=== PATIENT | female | born 1960 | race Two or more races ===

== ENCOUNTER 2023-09-02 11:36 | Inpatient (IN) | payer OTHER ==
[~2023-09-02] VITALS: Ht 160 cm; Wt 76.0 kg
[2023-09-02] MEDS ORDERED: MORPHINE SULFATE INJ 2 MG/ml SYRG IV ONE (12:00)
[2023-09-02] MEDS ORDERED: SODIUM CHLORIDE 0.9% 1,000 ML IV ONE (12:00)
[2023-09-02] MEDS ORDERED: ONDANSETRON HCL 4 MG/2 ML VIAL IV ONE (12:00)
[2023-09-02 12:32] LABS: Basophils # (auto) 0.1 10 ^3/uL (0-0.2); Basophils % (auto) 0.6 % (0.0-2.0); Eosinophils # (auto) 0.1 10 ^3/uL (0-0.8); Eosinophils % (auto) 1.4 % (0.0-7.0); Hematocrit 41.9 % (36.0-46.0); Hemoglobin 13.8 g/dL (12.2-16.2); Lymphocytes # (auto) 1.9 10 ^3/uL (0.4-5.4); Lymphocytes % (auto) 17.7 % (10.0-50.0); Mean Corpuscular Hemoglobin 28.1 pg (28.0-32.0); Mean Corpuscular Volume 85.2 fL (80.0-100.0); Monocytes # (auto) 0.6 10 ^3/uL (0-1.3); Monocytes % (auto) 5.3 % (0.0-12.0); Red Blood Cells 4.91 10^6/uL (4.0-5.20); Red Cell Distribution Width 14.3 % (11.8-14.3); White Blood Cell 10.7 10^3/uL (4.4-10.8)
[2023-09-02 12:45] LABS: INR 1.05 (0.9-1.15); Partial Thromboplastin Time 28.3 SEC (24.5-34.5)
[2023-09-02 12:54] LABS: Alanine Aminotransferase 29 U/L (7-40); Albumin 4.3 g/dL (3.2-4.8); Alkaline Phosphatase 124 U/L (46-116); Anion Gap 8 (5-15); Aspartate Aminotransferase 17 U/L (13-40); BUN/Creatinine Ratio 13.6 (10.0-20.0); Bilirubin, Total 0.5 mg/dL (0.2-1.0); Blood Urea Nitrogen 8 mg/dL (9-23); Calcium 9.1 mg/dL (8.7-10.4); Carbon Dioxide 26 mmol/L (20-30); Chloride 106 mmol/L (98-107); Glucose 131 mg/dL (74-106); Lipase 44 U/L (12-53); Magnesium 2.2 mg/dL (1.6-2.6); Potassium 3.8 mmol/L (3.5-5.1); Sodium 140 mmol/L (136-145); Total Protein 6.8 g/dL (5.7-8.2)
[2023-09-02 12:56] LABS: Urine Bacteria NONE SEEN /hpf (None Seen); Urine Blood Negative /uL (Negative); Urine Clarity Clear (Clear); Urine Color Yellow (Yellow); Urine Mucus FEW (None Seen); Urine Protein, UAD TRACE (Negative); Urine Specific Gravity 1.022 (1.001-1.035); Urine Urobilinogen Normal (Negative); Urine WBC 6 /hpf (0 - 5); Urine pH 7.5 (5.0-8.0)
[2023-09-02] MEDS ORDERED: cefTRIAXone 1GM/50ML D5W 50 ML IV ONE (13:30)
[2023-09-02] MEDS ORDERED: HYDR12.55 PO (17:21)
[2023-09-02] MEDS ORDERED: NAP500T PO (17:21)
[2023-09-02] MEDS ORDERED: DICL1GEL73 TOP (17:21)
[2023-09-02] MEDS ORDERED: ATOR20TA50 PO (17:21)
[2023-09-02] MEDS ORDERED: NITR100C6 PO (17:21)
[2023-09-02] MEDS ORDERED: ACETAMINOPHEN 325 MG TAB PO PRN (17:30)
[2023-09-02] MEDS ORDERED: ONDANSETRON HCL 4 MG/2 ML VIAL IV PRN (17:30)
[2023-09-02] MEDS ORDERED: metroNIDAZOLE 500MG/100ML 100 ML IV ONE (17:30)
[2023-09-02] MEDS ORDERED: PANTOPRAZOLE 40 MG/10 ML VIAL INJ IV ONE (17:30)
[2023-09-02] MEDS ORDERED: KETOROLAC TROMETH 30 MG/ML 1ML VIAL IV ONE (17:30)
[2023-09-03] MEDS: SODIUM CHLORIDE 0.9% 1,000 ML IV SCH ×3 (03:30→14:57)
[2023-09-03 04:42] LABS: Basophils # (auto) 0 10 ^3/uL (0-0.2); Basophils % (auto) 0.3 % (0.0-2.0); Eosinophils # (auto) 0.3 10 ^3/uL (0-0.8); Eosinophils % (auto) 2.5 % (0.0-7.0); Hematocrit 39.8 % (36.0-46.0); Hemoglobin 12.8 g/dL (12.2-16.2); Lymphocytes # (auto) 1.6 10 ^3/uL (0.4-5.4); Lymphocytes % (auto) 13.5 % (10.0-50.0); Mean Corpuscular Hemoglobin 27.5 pg (28.0-32.0); Mean Corpuscular Hgb Conc. 32.2 g/dL (32.0-36.0); Mean Corpuscular Volume 85.5 fL (80.0-100.0); Monocytes # (auto) 0.7 10 ^3/uL (0-1.3); Monocytes % (auto) 5.9 % (0.0-12.0); Neutrophils # (auto) 9.2 10 ^3/uL (1.6-8.6); Neutrophils % (auto) 77.8 % (37.0-80.0); Red Blood Cells 4.66 10^6/uL (4.0-5.20); Red Cell Distribution Width 14.5 % (11.8-14.3); White Blood Cell 11.8 10^3/uL (4.4-10.8)
[2023-09-03 05:00] LABS: Alanine Aminotransferase 28 U/L (7-40); Albumin 4.2 g/dL (3.2-4.8); Alkaline Phosphatase 117 U/L (46-116); Anion Gap 7 (5-15); Aspartate Aminotransferase 15 U/L (13-40); BUN/Creatinine Ratio 23.7 (10.0-20.0); Bilirubin, Total 0.3 mg/dL (0.2-1.0); Blood Urea Nitrogen 14 mg/dL (9-23); Calcium 9.4 mg/dL (8.5-10.1); Carbon Dioxide 28 mmol/L (20-30); Chloride 104 mmol/L (98-107); Glucose 142 mg/dL (74-106); Sodium 139 mmol/L (136-145)
[2023-09-03 05:01] LABS: Total Protein 6.6 g/dL (5.7-8.2)
[2023-09-03] MEDS: metroNIDAZOLE 500MG/100ML 100 ML IV SCH ×4 (05:27→21:57)
[2023-09-03 08:31] VITALS: PULSE 67; RESP 17; O2SAT 99
[2023-09-03] MEDS: PANTOPRAZOLE 40 MG/10 ML VIAL INJ IV SCH (09:36)
[2023-09-03] MEDS: hydroCHLOROthiazide 25 MG TAB PO SCH (09:37)
[2023-09-03] MEDS: ATORVASTATIN 20 MG TAB PO SCH (09:37)
[2023-09-03] MEDS: cefTRIAXone 1GM/50ML D5W 50 ML IV SCH (09:38)
[2023-09-03] MEDS: ENOXAPARIN SOD 40 MG/0.4 ML SYRINGE SC SCH (09:43)
[2023-09-03 11:00] LABS: COVID19 ANTIGEN SOFIA FIA NEGATIVE (NEGATIVE)
[2023-09-03 11:01] LABS: Rapid Influenza A Negative (Negative); Rapid Influenza B Negative (Negative)
[2023-09-03 12:38] VITALS: BP 133/66; PULSE 64; RESP 15; TEMP 98.3; O2SAT 100
[2023-09-03] MEDS: KETOROLAC TROMETH 30 MG/ML 1ML VIAL IV PRN ×2 (15:36→21:57)
[2023-09-03 16:35] VITALS: BP 128/74; PULSE 82; RESP 16; TEMP 97.9; O2SAT 98
[2023-09-03 20:00] VITALS: RESP 18; O2SAT 96
[2023-09-03 22:00] VITALS: BP 118/64; PULSE 73; RESP 18; TEMP 97.9; O2SAT 96
[2023-09-04] MEDS: KETOROLAC TROMETH 30 MG/ML 1ML VIAL IV PRN ×2 (02:45→21:48)
[2023-09-04 05:00] VITALS: BP 120/74; PULSE 67; RESP 17; TEMP 97.5; O2SAT 97
[2023-09-04] MEDS: metroNIDAZOLE 500MG/100ML 100 ML IV SCH ×3 (05:38→21:49)
[2023-09-04] MEDS: SODIUM CHLORIDE 0.9% 1,000 ML IV SCH ×2 (05:43→21:51)
[2023-09-04 09:00] VITALS: BP 120/44; PULSE 64; RESP 14; TEMP 97.8; O2SAT 98
[2023-09-04] MEDS: ATORVASTATIN 20 MG TAB PO SCH (09:10)
[2023-09-04] MEDS: cefTRIAXone 1GM/50ML D5W 50 ML IV SCH (09:11)
[2023-09-04] MEDS: ENOXAPARIN SOD 40 MG/0.4 ML SYRINGE SC SCH (09:11)
[2023-09-04] MEDS: hydroCHLOROthiazide 25 MG TAB PO SCH (09:11)
[2023-09-04] MEDS: PANTOPRAZOLE 40 MG/10 ML VIAL INJ IV SCH (09:11)
[2023-09-04] MEDS: DICYCLOMINE HCL 10 MG CAP PO SCH ×3 (12:45→21:48)
[2023-09-04 13:00] VITALS: BP 112/55; PULSE 66; RESP 18; TEMP 98.1; O2SAT 97
[2023-09-04 17:00] VITALS: BP 115/76; PULSE 70; RESP 18; TEMP 98.1; O2SAT 99
[2023-09-04 20:00] VITALS: PULSE 70; RESP 18; O2SAT 95
[2023-09-04 22:00] VITALS: BP 143/66; PULSE 70; RESP 18; TEMP 98.2; O2SAT 95
[2023-09-05 05:00] VITALS: BP 114/50; PULSE 66; RESP 18; TEMP 97.7; O2SAT 96
[2023-09-05] MEDS: metroNIDAZOLE 500MG/100ML 100 ML IV SCH (05:29)
[2023-09-05] MEDS: DICYCLOMINE HCL 10 MG CAP PO SCH ×2 (05:30→12:23)
[2023-09-05] MEDS: cefTRIAXone 1GM/50ML D5W 50 ML IV SCH (08:46)
[2023-09-05 09:00] VITALS: BP 130/55; PULSE 65; RESP 14; TEMP 98.1; O2SAT 98
[2023-09-05] MEDS: PANTOPRAZOLE 40 MG/10 ML VIAL INJ IV SCH (09:54)
[2023-09-05] MEDS: ENOXAPARIN SOD 40 MG/0.4 ML SYRINGE SC SCH (09:54)
[2023-09-05] MEDS: ATORVASTATIN 20 MG TAB PO SCH (09:54)
[2023-09-05] MEDS: hydroCHLOROthiazide 25 MG TAB PO SCH (09:57)
[2023-09-05] MEDS ORDERED: DICY10CA PO (10:26)
[2023-09-05] MEDS ORDERED: LEVO500T91 PO (10:26)
[2023-09-05] MEDS ORDERED: METR-344 PO (10:26)
[2023-09-05 14:05] VITALS: BP 130/55; TEMP 36.7
== END 2023-09-05 14:45 | disposition home or self-care (01) | DRG 249 ==
LOC: ER 11:36 → OVERFLOW 17:21 → EAST 09-03 11:04
PROVIDERS: ADMIT Nurse Practitioner Family; ATTEND Nurse Practitioner Acute Care
DX: K52.9 Noninfective gastroenteritis and colitis, unspecified (principal); E11.9 Type 2 diabetes mellitus without complications; N39.0 Urinary tract infection, site not specified; I10 Essential (primary) hypertension; E66.9 Obesity, unspecified; Z20.822 Contact with and (suspected) exposure to COVID-19; E78.00 Pure hypercholesterolemia, unspecified; Z90.710 Acquired absence of both cervix and uterus; Z68.29 Body mass index [BMI] 29.0-29.9, adult; J98.11 Atelectasis
CPT/HCPCS: 36415; 71045; 74177; 80053; 81001; 83605; 83690; 83735; 84484; 85025; 85610; 85730; 87040; 87086; 87426; 87804; C9113; G0378; J1885; J2405; J3490